=== PATIENT | female | born 1990 | race Caucasian/White ===

== ENCOUNTER 2018-07-12 17:37 | Emergency (ER) | payer OTHER ==
--- OUTSIDE RECORDS SUMMARY | 2018-07-12 17:39 | XMS REPORT ---
:1990 [facility] Address [address] [place] [address] Dr. Latif [address] [place] [id number] Care Team Providers Name Role Phone Unavailable Unavailable Unavailable Problems This patient has no known problems. Allergies, Adverse Reactions, Alerts This patient has no known allergies or adverse reactions. Medications This patient has no known medications.
[2018-07-12] MEDS ORDERED: IBUPROFEN 400 MG TAB ONE (20:24)
[2018-07-12 20:40] LABS: Absolute Lymphocytes (CBC) 3.1 K/uL (0.7-4.9); Absolute Monocytes 0.6 K/uL (0.1-1.3); Absolute Neutrophil 5.1 K/uL (1.8-8.0); Basophils % 0.7 % (0-1.3); Eosinophils % 3.6 % (0-4.4); Hematocrit 41.2 % (36.0-45.0); Lymphocytes % 33.7 % (15.3-44.8); MPV 9.1 fL (7.6-11.3); Monocytes % 6.8 % (3.3-12.3); RBC Red Blood Cell Count 4.63 M/uL (3.86-4.86)
[2018-07-12 20:58] LABS: Albumin 4.2 g/dL (3.4-5.0); Bilirubin Direct 0.2 mg/dL (0-0.2); Bilirubin Total 0.7 mg/dL (0.2-1.0); Potassium 3.6 mmol/L (3.5-5.1); Protein, Total 7.8 g/dL (6.4-8.2)
--- NOTE | 2018-07-12 23:12 | ER ---
Nurse's Notes [facility] Name: Carmelita Davies Age: 27 yrs Sex: Female : 1990 Arrival Date: 07/12/2018 Time: 17:40 Bed 8 Private MD: Shweta Turcios K Diagnosis: Displacement of intrauterine contraceptive device Presentation: 07/12 18:02 Presenting complaint: Sent by PCP for displaced IUD. Pt c/o low back pain for several hb years, worse over last week. Recent XRAY shows IUD in LLQ at level of L4 and L5. Transition of care: patient was not received from another setting of care. Onset of symptoms is unknown. Risk Assessment: Do you want to hurt yourself or someone else? Patient reports no desire to harm self or others. Care prior to arrival: None. 18:02 Method Of Arrival: Ambulatory hb 18:02 Acuity: JANICE 3 hb 20:34 Initial Sepsis Screen: Does the patient meet any 2 criteria? No. Patient's initial jd3 sepsis screen is negative. Does the patient have a suspected source of infection? No. Patient's initial sepsis screen is negative. 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 - Social history:: Smoking status: Patient/guardian denies using tobacco, Patient/guardian denies using alcohol, street drugs, The patient lives with family. - Ebola Screening: : No symptoms or risks identified at this time. - Family history:: not pertinent. Screenin:35 Abuse screen: Denies threats or abuse. Nutritional screening: No deficits noted. jd3 Tuberculosis screening: No symptoms or risk factors identified. Fall Risk IV access (20 points). Ambulatory Aid- None/Bed Rest/Nurse Assist (0 pts). Gait- Normal/Bed Rest/Wheelchair (0 pts) Mental Status- Oriented to own ability (0 pts). Total Rodríguez Fall Scale indicates No Risk (0-24 pts). Assessment: 20:33 General: Appears in no apparent distress. uncomfortable, Behavior is calm, cooperative, jd3 appropriate for age. Pain: Complains of pain in left flank Quality of pain is described as aching, pressure. Neuro: Level of Consciousness is awake, alert, obeys commands, Oriented to person, place, time, situation, Appropriate for age. Cardiovascular: Capillary refill < 3 seconds Patient's skin is warm and dry. Respiratory: Airway is patent Respiratory effort is even, unlabored, Respiratory pattern is regular, symmetrical. GI: No signs and/or symptoms were reported involving the gastrointestinal system. : No signs and/or symptoms were reported regarding the genitourinary system. EENT: No signs and/or symptoms were reported regarding the EENT system. Derm: Skin is intact, Skin is dry, Skin is normal, Skin temperature is warm. Musculoskeletal: Circulation, motion, and sensation intact. Range of motion: intact in all extremities. 21:38 Reassessment: Patient appears in no apparent distress at this time. Patient and/or jd3 family updated on plan of care and expected duration. Pain level reassessed. Patient is alert, oriented x 3, equal unlabored respirations, skin warm/dry/pink. provider at bedside. 22:21 Reassessment: Patient appears in no apparent distress at this time. Patient and/or jd3 family updated on plan of care and expected duration. Pain level reassessed. Patient is alert, oriented x 3, equal unlabored respirations, skin warm/dry/pink. awaiting disposition from provider. 23:38 Reassessment: Patient appears in no apparent distress at this time. Patient and/or jd3 family updated on plan of care and expected duration. Pain level reassessed. Patient is alert, oriented x 3, equal unlabored respirations, skin warm/dry/pink. Vital Signs: 18:08 BP 134 / 67; Pulse 76; Resp 16; Temp 98.2; Pulse Ox 100% on R/A; Pain 5/10; hb 22:22 BP 99 / 55; Pulse 76; Resp 15 S; Pulse Ox 100% on R/A; jd3 23:37 BP 97 / 60; Pulse 63; Resp 17 S; Pulse Ox 99% on R/A; jd3 ED Course: 17:40 Patient arrived in ED. rg4 17:40 Shweta Turcios MD is Private Physician. rg4 18:08 Triage completed. hb 18:08 Arm band placed on. hb 19:57 Shobha Melendez MD is Attending Physician. ma2 20:10 Frazier, Johnnie, RN is Primary Nurse. jd3 20:11 Radiology exam delayed due to lab results not completed at this time. (BUN/Creatinine). nj 20:25 Inserted saline lock: 20 gauge in right antecubital area, using aseptic technique. jd3 Blood collected. 20:34 Patient has correct armband on for positive identification. Bed in low position. Call jd3 light in reach. Side rails up X 1. Adult w/ patient. 21:05 Patient moved to [place] via wheelchair. nj 21:07 CT completed. Patient tolerated procedure well. Patient moved back from [place]. nj 23:12 Sanjay Wall MD is Referral Physician. ma2 23:14 Abdomen In Process Unspecified. EDMS 23:38 No provider procedures requiring assistance completed. IV discontinued, intact, jd3 bleeding controlled, No redness/swelling at site. Pressure dressing applied. Administered Medications: 20:32 Drug: Motrin 800 mg Route: PO; jd3 21:30 Follow up: Response: No adverse reaction jd3 Outcome: 23:12 Discharge ordered by . ma2 23:38 Discharged to home ambulatory, with family. jd3 23:38 Condition: stable 23:38 Discharge instructions given to patient, family, Instructed on discharge instructions, follow up and referral plans. medication usage, Demonstrated understanding of instructions, follow-up care, medications, Prescriptions given X 1. 23:40 Patient left the ED. jd3 Signatures: Dispatcher [employer] EDMS Tati Cao RN Meaghan Ware rg4 Victoriano Tran Jonathon, RN RN jShobha Houston MD MD ma2 Corrections: (The following items were deleted from the chart) 23:39 23:39 Response: No adverse reaction jd3 jd3
--- NOTE | 2018-07-12 23:13 | EDPHYS ---
Physician Documentation [facility] Name: Carmelita Davies Age: 27 yrs Sex: Female : 1990 Arrival Date: 07/12/2018 Time: 17:40 Bed 8 Private MD: Shweta Turcios K ED Physician Shobha Melendez HPI: 07/12 21:08 This 27 yrs old Female presents to ER via Ambulatory with complaints of Back ma2 Pain. 21:08 Onset: The symptoms/episode began/occurred gradually, 3 week(s) ago. The pain does not ma2 radiate. Associated signs and symptoms: Pertinent negatives: abdominal pain, dysuria. Severity of symptoms: At their worst the symptoms were mild, in the emergency department the symptoms have resolved. The patient has experienced similar episodes in the past. LLQ abd pain for weeks here from clinic for ct a/p to rule out uterine rupture as IUD seen on XRAY ?outside uterus, decline pain medicine in er, symptoms are stable for weeks . 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 - Social history:: Smoking status: Patient/guardian denies using tobacco, Patient/guardian denies using alcohol, street drugs, The patient lives with family. - Ebola Screening: : No symptoms or risks identified at this time. - Family history:: not pertinent. ROS: 21:08 Constitutional: Negative for fever, chills, and weight loss, Eyes: Negative for injury, ma2 pain, redness, and discharge. 21:08 Abdomen/GI: Positive for abdominal pain, Negative for nausea and vomiting, vomiting, constipation, abdominal distension, rectal bleeding, flatulence. 21:08 All other systems are negative. Exam: 21:08 Constitutional: This is a well developed, well nourished patient who is awake, alert, ma2 and in no acute distress. Chest/axilla: Normal chest wall appearance and motion. Nontender with no deformity. No lesions are appreciated. Cardiovascular: Regular rate and rhythm with a normal S1 and S2. No gallops, murmurs, or rubs. Normal PMI, no JVD. No pulse deficits. Respiratory: Lungs have equal breath sounds bilaterally, clear to auscultation and percussion. No rales, rhonchi or wheezes noted. No increased work of breathing, no retractions or nasal flaring. Abdomen/GI: Soft, non-tender, with normal bowel sounds. No distension or tympany. No guarding or rebound. No evidence of tenderness throughout. Back: No spinal tenderness. No costovertebral tenderness. Full range of motion. Skin: Warm, dry with normal turgor. Normal color with no rashes, no lesions, and no evidence of cellulitis. MS/ Extremity: Pulses equal, no cyanosis. Neurovascular intact. Full, normal range of motion. Neuro: Awake and alert, GCS 15, oriented to person, place, time, and situation. Cranial nerves II-XII grossly intact. Motor strength 5/5 in all extremities. Sensory grossly intact. Cerebellar exam normal. Normal gait. Vital Signs: 18:08 BP 134 / 67; Pulse 76; Resp 16; Temp 98.2; Pulse Ox 100% on R/A; Pain 5/10; hb 22:22 BP 99 / 55; Pulse 76; Resp 15 S; Pulse Ox 100% on R/A; jd3 23:37 BP 97 / 60; Pulse 63; Resp 17 S; Pulse Ox 99% on R/A; jd3 MDM: 19:57 Patient medically screened. tn2 21:08 Differential diagnosis: Fatigue Ligament Injury Obesity Osteoarthritis. tn2 23:10 Data reviewed: vital signs, nurses notes. Counseling: I had a detailed discussion with ma2 the patient and/or guardian regarding: the historical points, exam findings, and any diagnostic results supporting the discharge/admit diagnosis, the presence of at least one elevated blood pressure reading (>120/80) during this emergency department visit, the need for outpatient follow up. ED course: ct finding shows IUD in peritoneum, her symptoms are unchanged for 6 years, vs stable abd soft non tener, discussed with dr. rony grady and he recommends outpatient f/u, agree with plan . 07/12 20:46 Order name: CBC with Automated Diff; Complete Time: 21:42 EDMS 07/12 20:07 Order name: IV Saline Lock; Complete Time: 20:32 [facility] 07/12 20:59 Order name: Basic Metabolic Panel; Complete Time: 21:42 EDMS 07/12 20:59 Order name: Liver (Hepatic) Function; Complete Time: 21:42 EDMT 07/12 20:59 Order name: Lipase; Complete Time: 21:42 EDMT 07/12 21:00 Order name: Creatinine (Radiology Only); Complete Time: 21:42 EDMT 07/12 23:14 Order name: Abdomen EDMT 07/12 20:07 Order name: Labs collected and sent; Complete Time: 20:32 ma2 Administered Medications: 20:32 Drug: Motrin 800 mg Route: PO; jd3 21:30 Follow up: Response: No adverse reaction jd3 Disposition: 07/12/18 23:12 Discharged to Home. Impression: Displacement of intrauterine contraceptive device. - Condition is Stable. - Prescriptions for Tramadol 50 mg Oral Tablet - take 1 tablet by ORAL route every 8 hours as needed; 12 tablet. - Medication Reconciliation Form, Thank You Letter, Antibiotic Education, Prescription Opioid Use form. - Follow up: Sanjay Wall MD; When: 48 Hours; Reason: Continuance of care. Signatures: Dispatcher [employer] [facility] Tati Cao RN RN hb Davies, Jonathon, RN RN jd3 Alzahri, Mohammad, MD MD ma2 Corrections: (The following items were deleted from the chart) 23:40 23:12 07/12/2018 23:12 Discharged to Home. Impression: Displacement of intrauterine jd3 contraceptive device. Condition is Stable. Forms are Medication Reconciliation Form, Thank You Letter, Antibiotic Education, Prescription Opioid Use. Follow up: Sanjay Wall; When: 48 Hours; Reason: Continuance of care. ma2
--- NOTE | 2018-07-13 12:25 | RAD REPORT ---
EXAM DESCRIPTION: CT Abdomen and Pelvis With Intravenous Contrast CLINICAL HISTORY: The patient is 27 years old and is Female; LOW BACK PAIN TECHNIQUE: Axial computed tomography images of the abdomen and pelvis with intravenous contrast. S agittal and coronal reformatted images were created and reviewed. This CT exam was performed using one or more of the following dose reduction techniques: automated exposure control, adjustment of t he mA and/or kV according to patient size, and/or use of iterative reconstruction technique. COMPARISON: None. FINDINGS: LUNG BASES: Visualized lung bases are clear. HEART: Visualized heart is unremarkable. ABDOMEN: LIVER: Unremarkable. No mass. GALLBLADDER AND BILE DUCTS: Unremarkable. No calcified stones. No ductal dilation. PANCREAS: Unremarkable. No mass. No ductal dilation. SPLEEN: Unremarkable. No splenomegaly. ADRENALS: Unremarkable. No mass. KIDNEYS AND URETERS: Unremarkable. No solid mass. No hydronephrosis. STOMACH AND BOWEL: Unremarkable. No obstruction. No mucosal thickening. PELVIS: APPENDIX: The appendix is seen and is within normal limits BLADDER: Unremarkable. No mass. REPRODUCTIVE: Unremarkable as visualized. ABDOMEN and PELVIS: INTRAPERITONEAL SPACE: Unremarkable. No free air. No significant fluid collection. BONES/JOINTS: Partially characterized degenerative pelvic changes with suggestion of two corpus cuca teal cyst on the left measuring 1.8 and 1.1 cm (series 501, image 68). No acute fracture. No dislocation. SOFT TISSUES: Unremarkable. VASCULATURE: Unremarkable. No abdominal aortic aneurysm. LYMPH NODES: Unremarkable. No enlarged lymph nodes. TUBES, LINES AND DEVICES: There is an intraperitoneal T-shaped radiopaque device in the anterior a spect of the left lower abdomen (series 502, image 29) suggestive of displaced intrauterine contracep tive device. IMPRESSION: 1. Dislodged intrauterine contraceptive device in the anterior aspect of the left abbey toneum. 2. Incompletely characterized left adnexal cystic changes with suggestion of two corpus luteal cyst s as detailed above. Electronically signed by: Marcial Anthony DO 07/12/2018 9:30 PM [employer] ADDENDUM: THIS REPORT CONTAINS FINDINGS THAT MAY BE CRITICAL TO PATIENT'S CARE: The findings were verbally discussed via telephone conference with Dr. Shobha Melendez by Dr. Sania biggs on 07/12/2018 9:35 PM [employer]. The results were acknowledged and understood. Electronically signed by: Marcial Anthony DO 07/12/2018 9:35 PM [employer] End of Addendum EXAM DESCRIPTION: CT Abdomen and Pelvis With Intravenous Contrast CLINICAL HISTORY: The patient is 27 years old and is Female; LOW BACK PAIN TECHNIQUE: Axial computed tomography images of the abdomen and pelvis with intravenous contrast. S agittal and coronal reformatted images were created and reviewed. This CT exam was performed using one or more of the following dose reduction techniques: automated exposure control, adjustment of t he mA and/or kV according to patient size, and/or use of iterative reconstruction technique. COMPARISON: None. FINDINGS: LUNG BASES: Visualized lung bases are clear. HEART: Visualized heart is unremarkable. ABDOMEN: LIVER: Unremarkable. No mass. GALLBLADDER AND BILE DUCTS: Unremarkable. No calcified stones. No ductal dilation. PANCREAS: Unremarkable. No mass. No ductal dilation. SPLEEN: Unremarkable. No splenomegaly. ADRENALS: Unremarkable. No mass. KIDNEYS AND URETERS: Unremarkable. No solid mass. No hydronephrosis. STOMACH AND BOWEL: Unremarkable. No obstruction. No mucosal thickening. PELVIS: APPENDIX: The appendix is seen and is within normal limits BLADDER: Unremarkable. No mass. REPRODUCTIVE: Unremarkable as visualized. ABDOMEN and PELVIS: INTRAPERITONEAL SPACE: Unremarkable. No free air. No significant fluid collection. BONES/JOINTS: Partially characterized degenerative pelvic changes with suggestion of two corpus cuca teal cyst on the left measuring 1.8 and 1.1 cm (series 501, image 68). No acute fracture. No dislocation. SOFT TISSUES: Unremarkable. VASCULATURE: Unremarkable. No abdominal aortic aneurysm. LYMPH NODES: Unremarkable. No enlarged lymph nodes. TUBES, LINES AND DEVICES: There is an intraperitoneal T-shaped radiopaque device in the anterior a spect of the left lower abdomen (series 502, image 29) suggestive of displaced intrauterine contracep tive device. IMPRESSION: 1. Dislodged intrauterine contraceptive device in the anterior aspect of the left abbey toneum. 2. Incompletely characterized left adnexal cystic changes with suggestion of two corpus luteal cyst s as detailed above. Electronically signed by: Marcial Anthony DO 07/12/2018 9:30 PM [employer] Due to temporary technical issues with the PACS/Fluency reporting system, reports are being signed by the in house radiologist as a courtesy to ensure prompt reporting. The interpreting radiologist is yoon acevedoly responsible for the content of the report.
== END 2018-07-12 23:40 | disposition home or self-care (01) ==
LOC: ER 17:37
DX: T83.32XA Displacement of intrauterine contraceptive device, initial encounter (principal); Z88.5 Allergy status to narcotic agent
CPT/HCPCS: 36415; 74177; 80048; 80076; 83690; 85025; 99284; Q9967